=== PATIENT | female | born 2000 | race African-American/Black ===

== ENCOUNTER 2023-03-02 20:02 | Emergency (ER) | payer OTHER ==
[~2023-03-02] VITALS: Ht 149.9 cm; Wt 79.4 kg
[2023-03-02 20:05] VITALS: BP 114/73
--- NOTE | 2023-03-02 20:05 | NUR ---
AYAZ BO TO CHAIR B
--- NOTE | 2023-03-02 21:10 | NUR ---
Patient discharged with [facility] in custody. Written and verbal after care instructions given and explained to parent/guardian. All questions addressed prior to discharge. Advised to follow up with PMD.
== END 2023-03-02 21:10 ==
LOC: MED 20:02
DX: S20.211A Contusion of right front wall of thorax, initial encounter (principal); Z02.89 Encounter for other administrative examinations; N64.4 Mastodynia; V89.2XXA Person injured in unspecified motor-vehicle accident, traffic, initial encounter; Y93.89 Activity, other specified; Y92.410 Unspecified street and highway as the place of occurrence of the external cause; Y99.8 Other external cause status
CPT/HCPCS: 71045; 99283